=== PATIENT | male | born 1955 | race Caucasian/White ===

== ENCOUNTER 2018-02-15 14:52 | Observation (INO) | payer OTHER ==
--- NOTE | 2018-02-15 15:17 | Emergency Department Record ---
History of Present Illness - General Chief Complaint: Numbness Stated Complaint: LT HAND NUMBNESS,FACE NUMBNESS,KATIE,PASS OUT HOUR Time Seen by Provider: 02/15/18 15:06 Source: Patient, Family Mode of Arrival: Wheelchair Limitations: No limitations - History of Present Illness Initial Comments: 62 yo male presents rapid heart rate the last 1.5 hours. He states this occurs frequently. Today the onset was with work. He feels pounding and feels a little short of breath. He states this happens very frequently. It especially occurs with exertion or activity. The onset today occurred with exertion. No CAD. No formal prior diagnosis. Onset/Timin -: Hour(s) History of same: Yes Place: Outdoors Severity: Mild Improves With: None Worsens With: None Associated Symptoms: Syncope Treatments Prior to Arrival: None - Aurora Coma Scale Eye Response: (4) Open spontaneously Motor Response: (6) Obeys commands Verbal Response: (5) Oriented Aurora Total: 15 - Symptoms of Stroke Symptoms of stroke: Dizziness, Numbness - Related Data Home Medications: Home Medications Medication Instructions Recorded Confirmed Last Taken Levothyroxine Sodium 75 mcg PO DAILY 02/15/18 02/15/18 Unknown Lisinopril/Hydrochlorothiazide 1 each PO DAILY 02/15/18 02/15/18 Unknown [Lisinopril-Hctz 20-12.5 mg Tab] Pantoprazole Sodium [Protonix] 20 mg PO DAILY 02/15/18 02/15/18 Unknown Allergies/Adverse Reactions: Allergies Allergy/AdvReac Type Severity Reaction Status Date / Time No Known Drug Allergies Allergy Verified 02/15/18 15:06 Travel Screening - Travel/Exposure Within Last 30 Days Have you traveled within the last 30 days?: No Review of Systems Constitutional: Denies: Chills, Fever, Malaise, Weakness Eyes: Denies: Eye discharge, Eye pain, Photophobia, Vision change ENT: Denies: Congestion, Throat pain Respiratory: Denies: Cough, Dyspnea, Hemoptysis, Stridor, Wheezes Cardiovascular: Reports: Palpitations. Denies: Chest pain, Dyspnea on exertion , Edema, Syncope Endocrine: Denies: Fatigue, Polydipsia, Polyuria Gastrointestinal: Denies: Abdominal pain, Diarrhea, Nausea, Vomiting Genitourinary: Denies: Dysuria, Frequency, Hematuria Musculoskeletal: Denies: Arthralgia, Back pain, Myalgia Skin: Denies: Bruising, Change in color, Rash Neurological: Denies: Headache, Numbness, Weakness Psychiatric: Denies: Anxiety Hematological/Lymphatic: Denies: Easy bleeding, Easy bruising, Swollen glands Physical Exam - General General Appearance: Alert, Oriented x3, Cooperative, No acute distress, Other ( Appears comfortable) Limitations: No limitations - Head Head exam: Atraumatic, Normal inspection - Eye Eye exam: Normal appearance, PERRL. negative: Conjunctival injection, Scleral icterus - ENT ENT exam: Normal exam, Mucous membranes moist Ear exam: Normal external inspection Nasal Exam: Normal inspection Mouth exam: Normal external inspection Teeth exam: Normal inspection Throat exam: Normal inspection - Neck Neck exam: Normal inspection, Full ROM. negative: Tenderness - Respiratory Respiratory exam: Normal lung sounds bilaterally. negative: Respiratory distress - Cardiovascular Cardiovascular Exam: Normal rhythm, Normal heart sounds, Tachycardia. negative : Regular rate Peripheral Pulses: 2+: Radial (R), Radial (L) - GI/Abdominal GI/Abdominal exam: Soft. negative: Tenderness - Rectal Rectal exam: Deferred - exam: Deferred - Extremities Extremities exam: Normal inspection, Full ROM, Normal capillary refill. negative: Calf tenderness, Joint swelling, Pedal edema, Tenderness - Back Back exam: Reports: Normal inspection, Full ROM. Denies: Muscle spasm, Rash noted, Tenderness - Neurological Neurological exam: Alert, Normal gait, Oriented X3 - Psychiatric Psychiatric exam: Normal affect, Normal mood - Skin Skin exam: Dry, Intact, Normal color, Warm Course Vital Signs 02/15/18 15:02 Temperature 97.4 F L Pulse Rate 182 H Respiratory 21 Rate Blood Pressure 133/90 Pulse Ox 97 - Reevaluation(s) Reevaluation #1: EKG 1505 Rate 182, RBBB, regular monomorphic, ST changes consistent with RBBB. 02/15/18 15:17 02/15/18 15:21 The patient did a bear-down vagal maneuver and the SVT converted to sinus tach 110 down from 180. 02/15/18 15:25 The repeat EKG demonstrated a RBBB sinus tach at 114, [id number], axis L. at 1519 02/15/18 15:34 The patient went back into SVT Adenosine 6mg given with brief slowing only for less than 10 seconds Repeat 6mg given with HR decrease to sinus tach at 110 Lopressor given Patient tolerated this well. 02/15/18 16:04 The patient tolerated the Lopressor well HR 80 sinus 02/15/18 16:05 The labs were reviewed No acute changes on the CBC CMP with a CR of 1.6 otherwise no acute changes The Troponin is normal. 02/15/18 16:13 EKG 1610 EKG #3 NSR, rate is 84, intervals RBBB, axis normal, ST No acute changes. 02/15/18 17:41 The case was discussed with Dr Mrashall of cardiology. He recommends admission, monitor, ECHO and stress test tomorrow with cardiology consultation. He recommends Lopressor 25mg BID. Change Lisinopril/HCTZ to just Lisinopril 20mg and stopping the HCTZ. I discussed the case with Camille Salguero of the admission service. The D-dimer is .50. The suspicion for PE is low given his recurrent episodes by history. Given the risk of IVP contrast with a CR of 1.6 and GFR of 47 I recommend starting non invasive with dopplers of the legs, hydrating and rechecking the CR. This was discussed with Camille Salguero. HR is 93 currently. Medical Decision Making - Lab Data Result diagrams: 02/15/18 15:05 02/16/18 06:46 Critical Care Time Critical Care Time: Yes Total Critical Care Time: 35 (Includes chemical conversion of SVT, constant monitoring, rechecks, coordination of care with cardiology and the hospitalist) Disposition Disposition: Admit Clinical Impression: SVT (supraventricular tachycardia), Right bundle branch block (RBBB) Disposition: Still a Patient at [facility] Decision to Admit: Admit from ER Decision to Admit Date: 02/15/18 Decision to Admit Time: 17:11 Condition: (1) Good Time of Disposition: 17:00 Quality - Quality Measures Quality Measures: N/A - Blood Pressure Screening Does Patient Have Any of the Following: Active Dx of HTN Blood Pressure Classification: Hypertensive Reading Systolic Measurement: 133 Diastolic Measurement: 90 Screening for High Blood Pressure: Patient Exclusion, Hx of HTN [G9744]
[2018-02-15] MEDS ORDERED: METOPROLOL TART 5 MG/5 ML VIAL IV ONE (15:24)
[2018-02-15] MEDS ORDERED: ADENOSINE 6 MG/2 ML VIAL IVP ONE ×2 (15:24→15:38)
[2018-02-15 15:31] LABS: BASO % 0.6 % (0-6); EOS % 2.3 % (0-6); GRAN % 69.7 % (47-80); HEMATOCRIT 45.5 % (42.0-52.0); HEMOGLOBIN 15.6 gm/dl (14.0-18.0); MEAN CELL VOLUME 88.3 fl (81-97); MEAN CORPUSCULAR HEMOGLOBIN 30.3 pg (27-33); MEAN CORPUSCULAR HGB CONC 34.3 g/dl (32-36); MEAN PLATELET VOLUME 10.9 fl (7.4-10.4); MONO % 8.4 % (0-9); PLATELET COUNT 306 K/uL (130-400); RED BLOOD COUNT 5.15 M/uL (4.40-5.70); RED CELL DISTRIBUTION WIDTH 13.5 % (11.5-14.5); WHITE BLOOD COUNT W/O DIFF 8.1 K/uL (4.2-12.2)
[2018-02-15 15:37] LABS: BLOOD UREA NITROGEN 21 mg/dL (8-23); CREATININE 1.6 mg/dL (0.7-1.2); EST GLOMERULAR FILTRATION RATE 47 mL/min
[2018-02-15 15:38] LABS: TOTAL PROTEIN 8.2 g/dL (6.6-8.7)
[2018-02-15 15:40] LABS: GLUCOSE,RANDOM 109 mg/dL (74-109); PROTHROMBIN TIME (PATIENT) 10.6 SECONDS (9.5-12.1)
[2018-02-15 15:43] LABS: ALB/GLOB RATIO 1.4 (1.1-1.8); ALBUMIN 4.8 g/dL (4.0-5.0); ALKALINE PHOSPHATASE 44 U/L (40-129); ALT/SGPT 30 U/L (<41); AST/SGOT 31 U/L (10.0-50.0)
[2018-02-15 15:46] LABS: NTpro B-NATRIURETIC PEPTIDE 28.07 pg/mL (<125)
[2018-02-15] MEDS ORDERED: SODIUM CHLORIDE 0.9% 500 ML IV ONE (17:09)
--- NOTE | 2018-02-15 19:06 | History & Physical ---
History of Present Illness - Date of Service Date of Service for History & Physical: 02/15/18 - History of Present Illness Admitting Diagnosis: SVT, new onset RBBB History of Present Illness: 62 yo male presents for SVT (HR 180) with regular activity and new RBBB. PMH former smoker, asthma, HTN, hypothyroidism Pt reports that he was cutting wood and noticed he was getting more fatgiued than usual. Sat down for a few minutes, had the sensation of racing heart but continued to work. Pt then hooked up a trailer and was radha when he became dizzy. No history of similar, no family history of significant cardiac hx other than DM, HTN. hyperlipidemia in parents. ER Pt was found to have HR 180, dx SVT. Provider attempted vagal maneuvers, decreasing HR for approx 1 min. Adenosine was given with non sustained results. Pt was then given lopressor IVP and HR controlled after that. EKG obtained RBBB noted, new. Dr Marshall consulted and states will see pt tomorrow and complete ECHO and nuc stress test. NS 500cc bolus, adenosine 6mg IVP x2, lopressor 5mg IVP, lopressor 25mg PO WBC 8.1, RBC 5.15, Hgb 15.4, Hct 45, Plt 306 Na 144, K 3.8, CL 98, CO2 25, BUN 21, creatinine 1.6, glucose 109, BNP 28, mag 1.8, trop <0.010, D Dimer 0.50 02/15/18 Pt in no acute distress, HR 80's, denies CP, SOB, or dizziness. Lungs have mild wheezing but good air movement. Heart RRR, no murmurs noted. No edema noted. Pt updated on POC for repeat EKGs, labs, and cardiology with echo and nuc med stress test. Pt also educated on diet restrictions prior to testing. Specialist: Joanna (to see pt 02/16/18) Travel Screening - Travel/Exposure Within Last 30 Days Have you traveled within the last 30 days?: No Review of Systems Constitutional: Reports: As per HPI. Denies: Chills, Fever, Malaise, Night sweats, Weakness, Weight change Eyes: Reports: As per HPI. Denies: Eye discharge, Eye pain, Photophobia, Vision change ENT: Reports: As per HPI. Denies: Congestion, Dental pain, Ear pain, Epistaxis , Hearing loss, Throat pain Respiratory: Reports: As per HPI. Denies: Cough, Dyspnea, Hemoptysis, Stridor, Wheezes Cardiovascular: Reports: Dyspnea on exertion, Palpitations Endocrine: Reports: As per HPI. Denies: Fatigue, Heat or cold intolerance, Polydipsia, Polyuria Gastrointestinal: Reports: As per HPI. Denies: Abdominal pain, Constipation, Diarrhea, Hematemesis, Hematochezia, Melena, Nausea, Vomiting Genitourinary: Reports: As per HPI. Denies: Dysuria, Frequency, Hematuria, Incontinence, Retention, Testicular pain, Testicular mass, Urgency Musculoskeletal: Reports: As per HPI. Denies: Arthralgia, Back pain, Gout, Joint swelling, Myalgia, Neck pain Skin: Reports: As per HPI. Denies: Bruising, Change in color, Change in hair/ nails, Lesions, Pruritus, Rash Neurological: Reports: Other (dizziness) Psychiatric: Reports: As per HPI. Denies: Anxiety, Auditory hallucinations, Depression, Homicidal thoughts, Suicidal thoughts, Visual hallucinations Hematological/Lymphatic: Reports: As per HPI. Denies: Anemia, Blood Clots, Easy bleeding, Easy bruising, Swollen glands Past Medical History - SOCIAL HISTORY Smoking Status: Never smoker Alcohol Use: None Drug Use: None - RESPIRATORY Hx Respiratory Disorders: No Hx Asthma: Yes - CARDIOVASCULAR Hx Cardio Disorders: Yes Hx Hypertension: Yes Comment:: palpitations - NEURO Hx Neuro Disorders: No - GI Hx GI Disorders: Yes Hx Reflux: Yes - Hx Genitourinary Disorders: No - ENDOCRINE Hx Endocrine Disorders: Yes Hx Thyroid Disease: Yes - MUSCULOSKELETAL Hx Musculoskeletal Disorders: No - PSYCH Hx Psych Problems: No - HEMATOLOGY/ONCOLOGY Hx Hematology/Oncology Disorders: No Family Medical History Any Significant Family History?: No H&P Meds/Allergies - Allergies Allergies: Allergies Allergy/AdvReac Type Severity Reaction Status Date / Time No Known Drug Allergies Allergy Verified 02/15/18 15:06 - Home Medications Home Medications Medication Instructions Recorded Confirmed Last Taken Levothyroxine Sodium 75 mcg PO DAILY 02/15/18 02/15/18 Unknown Lisinopril/Hydrochlorothiazide 1 each PO DAILY 02/15/18 02/15/18 Unknown [Lisinopril-Hctz 20-12.5 mg Tab] Pantoprazole Sodium [Protonix] 20 mg PO DAILY 02/15/18 02/15/18 Unknown - Active Medications Active Medications: Current Medications Metoprolol Tartrate (Lopressor) 25 mg PO BID LEORA Physical Exam - Vital Signs Vital Signs: Vital Signs - Last 24 Hrs Temp Pulse Pulse Resp BP BP Pulse Ox 02/15/18 18:37 67 18 108/67 100 02/15/18 16:14 89 16 100/80 97 02/15/18 15:39 86 18 111/84 97 02/15/18 15:02 97.4 F L 182 H 21 133/90 97 - General Limitations: No limitations - Head Head exam: Atraumatic Head exam detail: negative: Abrasion, Contusion, General tenderness - Eye Eye exam: Normal appearance - ENT ENT exam: Normal exam Ear exam: Normal external inspection Mouth exam: Normal external inspection - Neck Neck exam: Normal inspection - Respiratory Respiratory exam: Normal lung sounds bilaterally, Wheezes (mild) - Cardiovascular Cardiovascular Exam: Regular rate, Normal rhythm, Normal heart sounds Peripheral Pulses: 2+: Radial (R), Radial (L), Dorsalis Pedis (R), Dorsalis Pedis (L) - Rectal Rectal exam: Deferred - exam: Deferred - Extremities Extremities exam: Normal inspection, Full ROM, Normal capillary refill. negative: Pedal edema - Neurological Neurological exam: Alert, Oriented X3 - Psychiatric Psychiatric exam: Normal affect - Skin Skin exam: Dry, Intact, Normal color, Warm. negative: Abrasion, Cyanosis Results - Labs Result Diagrams: 02/15/18 15:05 02/15/18 15:05 Labs Last 24 Hours: Laboratory Results - last 24 hr 02/15/18 02/15/18 02/15/18 15:05 15:05 15:05 WBC 8.1 RBC 5.15 Hgb 15.6 Hct 45.5 MCV 88.3 MCH 30.3 MCHC 34.3 RDW 13.5 Plt Count 306 MPV 10.9 H Gran % 69.7 Lymphocytes % 19.0 Monocytes % 8.4 Eosinophils % 2.3 Basophils % 0.6 PT 10.6 INR 1.0 APTT 28.0 D-Dimer Sodium 144 Potassium 3.8 Chloride 98 Carbon Dioxide 25.0 Anion Gap 21.0 H BUN 21 Creatinine 1.6 H Estimated GFR 47 Random Glucose 109 Calcium 10.1 Magnesium 1.8 Total Bilirubin 0.50 AST 31 ALT 30 Alkaline Phosphatase 44 Troponin T < 0.010 NT-Pro-B Natriuret Pep 28.07 Total Protein 8.2 Albumin 4.8 Globulin 3.4 Albumin/Globulin Ratio 1.4 02/15/18 02/15/18 15:20 15:30 WBC RBC Hgb Hct MCV MCH MCHC RDW Plt Count MPV Gran % Lymphocytes % Monocytes % Eosinophils % Basophils % PT INR APTT D-Dimer 0.50 Sodium Potassium Chloride Carbon Dioxide Anion Gap BUN Creatinine Estimated GFR Random Glucose Calcium Magnesium Total Bilirubin AST ALT Alkaline Phosphatase Troponin T NT-Pro-B Natriuret Pep Cancelled Total Protein Albumin Globulin Albumin/Globulin Ratio VTE H&P Assessment - Risk for VTE Risk for VTE: Yes Risk Level: Moderate Risk Assessment Date: 02/15/18 Risk Assessment Time: 19:43 VTE Orders Placed or Will Be Placed: Yes Plan - Inpatient Certification Inpatient Certification: Admit to inpatient care: Based on my medical assessment, after consideration of patient's risk factors (age, co-morbidities and patient presenting symptoms and acuity), I expect that this patient will remain in the hospital greater than or equal to two midnights and that the services needed warrant inpatient care because: Patient Risk Factors: SVT, new onset RBBB Estimated length of stay: The patient may reasonably be expected to be discharged or transferred to a hospital within 96 hours after admission to [facility]. Services needed: continuous cardiac monitoring, urgent echo/stress test, serial cardiac enzymes and EKGs Post hospital care (if known): [] I certify that my determination is in accordance with my understanding of Medicare requirements for reasonable and necessary inpatient services. 02/15/18 19:48 - Detailed Diagnosis and Plan (1) Right bundle branch block (RBBB) Current Visit: Yes Status: Acute Base Code: I45.10 - UNSPECIFIED RIGHT BUNDLE-BRANCH BLOCK Comment: 02/15/18 - new onset RBBB -SVT noted on admission to ER, resolved with lopressor IVP 5mg, followed by 25mg PO -Seeing Dr Marshall 02/16/18 for echo and stress (2) SVT (supraventricular tachycardia) Current Visit: Yes Status: Acute Base Code: I47.1 - SUPRAVENTRICULAR TACHYCARDIA Comment: 02/15/18 -SVT noted upon presentation to ER, HR 180 -vagal (failed) -adenosine (failed) -lopressor 5mg IVP converted to NSR, followed by lopressor 25g PO BID -Joanna consult with echo and stress 02/16/18 (3) DVT prophylaxis Current Visit: Yes Status: Acute Base Code: [id number] - Comment: 02/15/18 lovenox 60mg daily (4) Full code status Current Visit: Yes Status: Acute Base Code: Z78.9 - OTHER SPECIFIED HEALTH STATUS Comment: 02/15/18 full code status
[2018-02-15] MEDS ORDERED: ACETAMINOPHEN 325 MG TAB PO PRN (19:24)
[2018-02-15] MEDS ORDERED: ENOXAPARIN 60 MG/0.6 ML SYR SQ SCH (19:24)
[2018-02-15] MEDS ORDERED: 0.9 % SODIUM CHLORIDE 1000ML 1,000 ML IV PRN (19:24)
[2018-02-15] MEDS ORDERED: METOPROLOL TART 25 MG TABLET PO SCH (22:00)
[2018-02-15] MEDS: METOPROLOL TART 25 MG TABLET PO SCH (22:18)
--- NOTE | 2018-02-16 06:52 | RADIOLOGY REPORT ---
EXAM: PORTABLE CHEST HISTORY: RAPID HEART RATE. TECHNIQUE: A portable frontal view of the chest was obtained. Comparison: None. FINDINGS: Images were not submitted for my interpretation until 5:19 p.m. on . The heart size is normal. Mild ectasia of the thoracic aorta. Linear density projecting over the aortic knob is likely artifactual. The lungs are hyperinflated, but otherwise clear. No pneumothorax. IMPRESSION: UNDERLYING HYPERINFLATION. NO ACUTE CARDIOPULMONARY PROCESS. JOB NUMBER: [id number] [facility]
[2018-02-16] MEDS ORDERED: PANTOPRAZOLE SODIUM 40 MG TABLET PO SCH (07:00)
[2018-02-16] MEDS ORDERED: LEVOTHYROXINE SODIUM 75 MCG TABLET PO SCH (07:00)
[2018-02-16 07:25] LABS: BLOOD UREA NITROGEN 18 mg/dL (8-23); CREATININE 1.1 mg/dL (0.7-1.2); EST GLOMERULAR FILTRATION RATE > 60 mL/min; GLUCOSE,RANDOM 105 mg/dL (74-109)
[2018-02-16] MEDS: METOPROLOL TART 25 MG TABLET PO SCH ×2 (09:29→20:18)
[2018-02-16] MEDS ORDERED: ENOXAPARIN 40 MG/0.4 ML SYR SQ SCH (10:00)
[2018-02-16] MEDS ORDERED: LISINOPRIL 20 MG TABLET PO SCH (10:00)
[2018-02-16] MEDS ORDERED: ASPIRIN 325 MG TAB ENTERIC-COATED PO SCH (10:00)
[2018-02-16] MEDS ORDERED: HYDROCHLOROTHIAZIDE 12.5 MG CAPSULE PO SCH (10:00)
--- NOTE | 2018-02-16 19:44 | Discharge Summary ---
Providers Discharge Summary Date: 02/16/18 Date of admission: 02/15/18 19:09 Expected Date of Discharge: 02/16/18 Attending physician: VINCENT JAVIER Primary care physician: ERIBERTO KHAN M.D. Consults: Consult Orders 02/15/18 19:24 Consult - Cardiology NOW Consulting Provider: RADHA MARTINEZ Physician Instructions: Reason For Exam: SVT,RBBB Does pt have current director social?: Evy Physical Exam - Vital Signs Vital Signs: Vital Signs - Last 24 Hrs Temp Pulse Pulse Resp BP Pulse Ox 02/16/18 08:20 74 16 02/16/18 08:00 98.3 F 82 16 105/74 96 02/15/18 21:00 63 16 02/15/18 20:53 98.2 F 17 116/84 97 - General General Appearance: Alert, Oriented x3, Cooperative, No acute distress, Other ( Appears comfortable) Limitations: No limitations - Head Head exam: Atraumatic, Normal inspection Head exam detail: negative: Abrasion, Contusion, General tenderness - Eye Eye exam: Normal appearance, PERRL. negative: Conjunctival injection, Scleral icterus - ENT ENT exam: Normal exam, Mucous membranes moist Ear exam: Normal external inspection Nasal Exam: Normal inspection Mouth exam: Normal external inspection Teeth exam: Normal inspection Throat exam: Normal inspection - Neck Neck exam: Normal inspection, Full ROM. negative: Tenderness - Respiratory Respiratory exam: Normal lung sounds bilaterally. negative: Respiratory distress - Cardiovascular Cardiovascular Exam: Normal rhythm, Normal heart sounds, Tachycardia. negative : Regular rate Peripheral Pulses: 2+: Radial (R), Radial (L), Dorsalis Pedis (R), Dorsalis Pedis (L) - GI/Abdominal GI/Abdominal exam: Soft. negative: Tenderness - Rectal Rectal exam: Deferred - exam: Deferred - Extremities Extremities exam: Normal inspection, Full ROM, Normal capillary refill. negative: Calf tenderness, Joint swelling, Pedal edema, Tenderness - Back Back exam: Reports: Normal inspection, Full ROM. Denies: Muscle spasm, Rash noted, Tenderness - Neurological Neurological exam: Alert, Normal gait, Oriented X3 - Psychiatric Psychiatric exam: Normal affect, Normal mood - Skin Skin exam: Dry, Intact, Normal color, Warm Hospitalization - Hospitalization Admission Diagnosis: SVT, new onset RBBB - Problem List/Discharge Diagnosis (1) SVT (supraventricular tachycardia) Status: Acute Base Code: I47.1 - SUPRAVENTRICULAR TACHYCARDIA Comment: -SVT noted upon presentation to ER, HR 180 -vagal (failed) -adenosine (failed) -lopressor 5mg IVP converted to NSR, followed by lopressor 25g PO BID -Pt. started on 25mg metoprolol BID -Pt. to f/u with Dr. Higuera OP for stent placement (2) Right bundle branch block (RBBB) Status: Acute Base Code: I45.10 - UNSPECIFIED RIGHT BUNDLE-BRANCH BLOCK Comment: 02/16/18 - new onset RBBB -SVT noted on admission to ER, resolved with lopressor IVP 5mg, followed by 25mg PO -Cardiac consult on 02/[address] Higuera, echo normal, pt. scheduled to f/u OP for stent and pt. referred to nightman in cardiology office (3) DVT prophylaxis Status: Acute Base Code: [id number] - Comment: 02/16/18 lovenox decrease to 40mg daily for prophylaxis (4) Full code status Status: Acute Base Code: Z78.9 - OTHER SPECIFIED HEALTH STATUS Comment: 02/16 full code status - Disposition Discharge home, self-care - Hospitalization Course Disposition: Home, Self-Care Hospital Course: 62 yo male presents for SVT (HR 180) with regular activity and new RBBB. PMH former smoker, asthma, HTN, hypothyroidism Pt reports that he was cutting wood and noticed he was getting more fatgiued than usual. Sat down for a few minutes, had the sensation of racing heart but continued to work. Pt then hooked up a trailer and was radha when he became dizzy. No history of similar, no family history of significant cardiac hx other than DM, HTN. hyperlipidemia in parents. ER Pt was found to have HR 180, dx SVT. Provider attempted vagal maneuvers, decreasing HR for approx 1 min. Adenosine was given with non sustained results. Pt was then given lopressor IVP and HR controlled after that. EKG obtained RBBB noted, new. Dr Martinez consulted and states will see pt tomorrow and complete ECHO and nuc stress test. NS 500cc bolus, adenosine 6mg IVP x2, lopressor 5mg IVP, lopressor 25mg PO WBC 8.1, RBC 5.15, Hgb 15.4, Hct 45, Plt 306 Na 144, K 3.8, CL 98, CO2 25, BUN 21, creatinine 1.6, glucose 109, BNP 28, mag 1.8, trop <0.010, D Dimer 0.50 02/15/18 Pt in no acute distress, HR 80's, denies CP, SOB, or dizziness. Lungs have mild wheezing but good air movement. Heart RRR, no murmurs noted. No edema noted. Pt updated on POC for repeat EKGs, labs, and cardiology with echo and nuc med stress test. Pt also educated on diet restrictions prior to testing. 02/16/18 Pt. in no acute distress, HR 80's, denies CP, SOB, or dizziness. Heart RRR, no murmurs notes, no edema. Cardiology consult completed today with Dr. Higuera. Per Dr. Higuera, plan to f/u outpatient for stent and refer to nightman in his office for conversion of episodic SVT. Plan to discharge home this evening and continue metropolol 25mg BID. Specialist: Joanna Procedures: Imaging and X-Rays 02/15/18 15:18 CHEST 1 VIEW [RAD] Stat 02/16/18 VENOUS DOPPLER LOWER EXT CRUZ [US] Stat Cardiology Procedures 02/15/18 15:06 Casino Investigator NOW EKG NOW 02/15/18 16:04 EKG NOW 02/15/18 19:24 Casino Investigator .Continuous Cardiolite MPI w/exercise stre NOW EKG QDX2@0600 Echo W/CF & Cardiac Doppler NOW Abnormal Labs: Abnormal Lab Results 02/15/18 02/15/18 02/15/18 Range/Units 15:05 15:05 22:28 MPV 10.9 H (7.4-10.4) fl Anion Gap 21.0 H (7-16) Creatinine 1.6 H (0.7-1.2) mg/dL Troponin T 0.045 H (0-0.010) ng/mL 02/16/18 Range/Units 06:46 MPV (7.4-10.4) fl Anion Gap (7-16) Creatinine (0.7-1.2) mg/dL Troponin T 0.019 H (0-0.010) ng/mL Condition at Discharge: (1) Good VTE Discharge VTE Reason For No Overlap Therapy: Not Indicated (upcoming stent procedure) Discharge Medications - Discharge Medications Prescriptions: Metoprolol Tartrate [Lopressor] 25 mg PO BID 30 Days #60 tab Home Medications: Ambulatory Orders Levothyroxine Sodium 75 mcg PO DAILY 02/15/18 [Last Taken Unknown] Pantoprazole Sodium [Protonix] 20 mg PO DAILY 02/15/18 [Last Taken Unknown] Metoprolol Tartrate [Lopressor] 25 mg PO BID 30 Days #60 tab 02/16/18 [Last Taken Unknown] Discharge Plan - Discharge Instructions Activity at Discharge: Increase Activity as Tolerated Diet at Discharge: Advance to Usual Diet Instructions: Metoprolol (By mouth), Supraventricular Tachycardia (DC), Chest Pain (DC), Heart Catheterization (DC) Additional Instructions: 2 Activity: As tolerated 2 Diet: Regular 2 Consults: Dr Martinez is referring you to an nightman. His office will contact you with an appointment. 2 Follow Up: Dr Martinez's office will call you with an appointment for the heart catheterization. Do not continue your lisinopril/hctz until following up with Dr. Higuera (the metroprolol is lowering your blood pressure and you may become hypotensive if you take both medications 2 Additional: Please return to the closest emergency department with any new or worsening symptoms. Quality Measures - Quality Measures Quality Measures: Documentation of Current Medications in Medical Record, Screening for High Blood Pressure and F/U Documented - Current Medications Quality Measure: Measure #130: Documentation of Current Medications Documentation of Current Medications: <Current Medications Documented/Reviewed> [G8427] - Blood Pressure Screening Quality Measure: Screening for High Blood Pressure and Follow-Up Documented Does Patient Have Any of the Following: Active Dx of HTN Blood Pressure Classification: Hypertensive Reading Systolic Measurement: 133 Diastolic Measurement: 90 Screening for High Blood Pressure: Patient Exclusion, Hx of HTN [G9744] - Elder Abuse Suspicion Index EASI Reference Information: Mane NGUYEN, Don C, Arjun D, Butch Medina.Development and validation of a tool to assist physicians identification of elder abuse: The Elder Abuse Suspicion Index (EASI ). Journal of Elder Abuse and Neglect, 2008; 20 (3): 276-300.
--- NOTE | 2018-02-17 07:16 | US VENOUS DOPPLER REPORT ---
EXAM: BILATERAL LOWER EXTREMITY VENOUS DOPPLER ULTRASOUND HISTORY: CRAMPS. TECHNIQUE: Transverse and longitudinal sonographic images of the deep venous system of the bilateral lower extremities was performed. Comparison: None. FINDINGS: Doppler and spectral analysis with color flow was utilized. Normal waveforms bilaterally. No visible areas of thrombus formation. Normal compression and augmentation bilaterally. IMPRESSION: NEGATIVE EXAMINATION. JOB NUMBER: [id number] MTDD
--- NOTE | 2018-02-17 21:35 | Medical Records Consult ---
DATE OF CONSULTATION: 02/16/2018 REFERRING PHYSICIAN: DR. YUSEF GEORGES CONSULTING PHYSICIAN: RADHA MARTINEZ M.D. REASON FOR CONSULTATION: SVT AND ELEVATED CARDIAC BIOMARKERS. HISTORY OF PRESENT ILLNESS: Mr. Chris is a delightful 62-year-old gentleman who has a history of hypertension. He also has a longstanding history of palpitations that he can date back to 15 years ago. The patient says that he has had episodes on and off for a long time, however, he has never had a formal diagnosis. The patient says that he usually feels palpitations in the center of his chest and he can become very lightheaded and dizzy as well has shortness of breath and usually it goes away. However, yesterday he had this while he was driving and he pulled over his truck to the side and since the episode was not going away, he came to the Emergency Department. The patient says that he was dizzy and very uncomfortable. In the Emergency Department, he was found to have a wide complex tachycardia with a heart rate of 180 beats per minute. He was given Adenosine 6 mg, which did not convert him to sinus rhythm and then he was given some fluids as well as Lopressor and he finally converted back to sinus rhythm and since then he has been maintaining sinus rhythm. The patient did have mildly elevated troponin. He also had a CT of his chest performed to rule out PE, which was negative. He also had lower extremity venous Dopplers, which were negative as well. ALLERGIES: NO KNOWN DRUG ALLERGIES. HOME MEDICATIONS: Levothyroxine 75 mcg daily Lisinopril/Hydrochlorothiazide 20/4.5 mg p.o. daily Protonix 20 mg p.o. daily SOCIAL HISTORY: The patient denies any illicit drug use, however, he drinks a lot of coffee. He is an active gentleman and can do all of his activities without any issues. PHYSICAL EXAMINATION: On physical examination, Mr. Chris is a delightful 62-year-old gentleman, who is sitting comfortably in bed, not in any apparent distress. He is alert and oriented x3. HEENT: On HEENT examination, he is normocephalic/atraumatic. Extraocular muscles are intact. NECK: Neck is supple. CVS: On CVS examination, he has normal S1 and S2. There is no JVD. No pedal edema. RESPIRATORY: Respiratory examination reveals that his lungs are clear to auscultation bilaterally. ABDOMEN: Abdomen is soft and nontender. NEUROLOGIC: Neurologic examination is nonfocal. LABORATORY DATA: Shows a white count of 8.1. Hemoglobin of 15.6. Hematocrit of 45.5. Platelet count of 306. Sodium is 144. Potassium is 3.8. Chloride is 98. CO2 25. BUN 21. Creatinine this morning was 1.6. Blood glucose 109. His troponin went up from 0.010 to 0.045 and then came down to 0.019. N-terminal proBNP was 28. Magnesium was 1.8. His EKG shows sinus rhythm with a right bundle branch block. He had a stress test performed that shows a fixed defect in the inferior wall with normal LV function. IMPRESSION: 1. SUPRAVENTRICULAR TACHYCARDIA. 2. ELEVATED CARDIAC BIOMARKERS. 3. HISTORY OF HYPERTENSION. 4. HISTORY OF HYPOTHYROIDISM. 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 I had a long discussion with the patient about lifestyle changes and told him to keep himself well hydrated and also to decrease his caffeine intake because of his SVT going on for a long time and the episodes getting more intense. I would recommend him to be evaluated by our Electrophysiology colleague, Dr. Lucas, for possible SVT ablation. I discussed this with the patient, who agrees with the plan and I will refer him to see Dr. Lucas as an outpatient. The patient has an abnormal myocardial perfusion imaging showing a fixed defect in the inferior wall. Although the patient doesn't have any previous history of myocardial infarction and he has mildly elevated troponin, which most likely was demand ischemia rather than acute coronary syndrome and the inferior wall defect could be diaphragmatic attenuation artifact, however, given his risks factors as well as the arrhythmia and the elevated troponin, I would recommend doing coronary angiography for further evaluation. The patient, however, at this time is fairly stable and would like to go home and have the cardiac catheterization performed as an outpatient, to which I agree. I explained the procedure of cardiac catheterization, possible complications and outcomes and the patient sounds understanding and wants to proceed with the plan as an outpatient. I will have my office schedule him for a coronary angiography as an outpatient. I would recommend starting him on Metoprolol 25 mg b.i.d. His blood pressure is adequately controlled. I would also recommend checking his TSH for the adequacy of the thyroid supplementation. Further recommendations would follow coronary angiography. The patient otherwise is stable for discharge from cardiac standpoint. Thank you very much. JOB NUMBER: [id number] MTDD
--- NOTE | 2018-02-17 22:28 | Cardiolite Stress Test Report ---
DATE OF STRESS TEST: 02/16/2018 INTERPRETING PHYSICIAN: India Marshall M.D. REFERRING PHYSICIAN: Dr. Donald Dunn PRIMARY CARE PHYSICIAN: Dr. Ben Barrios INDICATION: SUPRAVENTRICULAR TACHYCARDIA AND ELEVATED CARDIAC ENZYMES. Mr. Chris underwent a treadmill stress Cardiolite test. His resting vital signs show a blood pressure of 113/90 mmHg and a heart rate of 75 beats per minute. His resting ECG showed a sinus rhythm with a right bundle branch block and no significant ST or T-wave changes were noted. The patient was exercised on a motorized treadmill using standard Mike protocol for a total of 10 minutes achieving 11 METS of workload. He achieved a maximum heart rate of 138 beats per minute, which was 87% of the maximum predicted heart rate for his age. The patient's ECG didn't show any ST or T- wave changes suggestive of ischemia. No arrhythmia was seen either. The patient didn't have any abnormal symptoms. The patient was injected with stress dose Cardiolite at peak exercise and he exercised for one more minute after the Cardiolite injection. MYOCARDIAL PERFUSION IMAGING: The patient had rest and post stress myocardial perfusion imaging performed utilizing technetium-99m Sestamibi. The patient was given a dose of 12.7 mCi for resting images and a 35.7 mCi dose for stress images. Images were obtained at rest and post stress in the short axis-view, in the vertical long-axis, as well as horizontal long-axis views and were compared side by side. EKG gated images were obtained for LV function and wall motion. The rest and post stress myocardial perfusion images reveal a medium-sized, moderate intensity fixed defect involving the inferior wall suggestive of a possible infarct in the RCA territory. However, on the gated images, there is no wall motion abnormality implying a diaphragmatic attenuation artifact. No reversible defect to suggest ischemia was seen. EKG gated images showed an end-systolic volume of 41 mL with an end-diastolic volume of 104 mL and an ejection fraction of 60%. No wall motion abnormality was seen. IMPRESSION: 1. NORMAL ECG RESPONSE TO EXERCISE STRESS WHILE ACHIEVING 11 METS OF WORKLOAD. 2. FIXED DEFECT INVOLVING THE INFERIOR WALL SUGGESTIVE OF A POSSIBLE INFARCT IN THE RCA TERRITORY, HOWEVER, A DIAPHRAGMATIC ATTENUATION ARTIFACT CANNOT BE EXCLUDED. 3. NORMAL LEFT VENTRICULAR SIZE AND FUNCTION WITH AN ESTIMATED EJECTION FRACTION OF 60%. JOB NUMBER: [id number] [facility]
== END 2018-02-16 20:20 | disposition home or self-care (01) ==
LOC: ER 14:52 → INTOOBSV 19:09 → MEDSURG 19:09
PROVIDERS: ADMIT Internal Medicine; ATTEND Internal Medicine
DX: I47.1 Supraventricular tachycardia (principal); I45.10 Unspecified right bundle-branch block; R06.00 Dyspnea, unspecified; R55 Syncope and collapse; I10 Essential (primary) hypertension; E03.9 Hypothyroidism, unspecified; J45.909 Unspecified asthma, uncomplicated
CPT/HCPCS: 99285 ×2; 96374; 96375; 83735; 85025; 85730; 85610; 80048; 80053; 84484 ×2; 85379; 83880; 71045; 93970; 93017; 93005 ×2; 93010; G0378 ×2; A9500; J0153; 78451; 78452; 99217; 99220; J1650

== ENCOUNTER 2018-08-14 00:16 | Emergency (ER) | payer OTHER ==
--- NOTE | 2018-08-14 00:29 | Emergency Department Record ---
History of Present Illness - General Chief Complaint: Abdominal Pain Stated Complaint: DIVERTICULITIS Time Seen by Provider: 08/14/18 00:18 Source: Patient, Family Mode of Arrival: Ambulatory - History of Present Illness Initial Comments: 63 yo male presents with left lower abdominal pain that started today. He reports a history of diverticulosis with an episode of diverticulitis in May. He had a colonoscopy this summer that demonstrated polyps and diverticulosis. No fever. No vomiting. No diarrhea. He has some constipation. No rash. No swelling. MD Complaint: Abdominal pain -: Days(s) (1) Location: LLQ Radiation: LLQ Migration to: LLQ Quality: Aching Consistency: Constant Improves With: Nothing Worsens With: Movement Context: Other Associated Symptoms: Anorexia, Constipation - Related Data Previous Rx's Medication Instructions Recorded Metoprolol Tartrate [Lopressor] 25 mg PO BID 30 Days #60 tab 02/16/18 Ciprofloxacin HCl [Cipro] 500 mg PO Q12HR #14 tablet 08/14/18 Metronidazole [Flagyl] 500 mg PO QID #28 tablet 08/14/18 Allergies Allergy/AdvReac Type Severity Reaction Status Date / Time No Known Drug Allergies Allergy Verified 02/15/18 15:06 Review of Systems Constitutional: Denies: Chills, Fever, Malaise, Weakness Eyes: Denies: Eye discharge ENT: Denies: Congestion, Throat pain Respiratory: Denies: Cough, Dyspnea Cardiovascular: Denies: Chest pain, Palpitations, Syncope Endocrine: Denies: Fatigue Gastrointestinal: Reports: Abdominal pain, Constipation. Denies: Diarrhea, Hematemesis, Hematochezia, Melena, Nausea, Vomiting Genitourinary: Denies: Dysuria, Frequency, Hematuria Musculoskeletal: Denies: Arthralgia, Back pain, Myalgia Skin: Denies: Bruising, Change in color, Rash Neurological: Denies: Confusion, Headache, Numbness, Weakness Psychiatric: Denies: Anxiety Hematological/Lymphatic: Denies: Blood Clots, Easy bleeding, Easy bruising Past Medical History - SOCIAL HISTORY Smoking Status: Never smoker Drug Use: None - RESPIRATORY Hx Respiratory Disorders: No Hx Asthma: Yes - CARDIOVASCULAR Hx Cardio Disorders: Yes Hx Hypertension: Yes Comment:: palpitations - NEURO Hx Neuro Disorders: No - GI Hx GI Disorders: Yes Hx Reflux: Yes - Hx Genitourinary Disorders: No - ENDOCRINE Hx Endocrine Disorders: Yes Hx Thyroid Disease: Yes - MUSCULOSKELETAL Hx Musculoskeletal Disorders: No - PSYCH Hx Psych Problems: No - HEMATOLOGY/ONCOLOGY Hx Hematology/Oncology Disorders: No Physical Exam - General General Appearance: Alert, Oriented x3, Cooperative, No acute distress Limitations: No limitations - Head Head exam: Atraumatic, Normal inspection - Eye Eye exam: Normal appearance. negative: Conjunctival injection, Scleral icterus - ENT ENT exam: Normal exam Ear exam: Normal external inspection Nasal Exam: Normal inspection Mouth exam: Normal external inspection - Neck Neck exam: Normal inspection - Respiratory Respiratory exam: Normal lung sounds bilaterally. negative: Respiratory distress - Cardiovascular Cardiovascular Exam: Regular rate, Normal rhythm, Normal heart sounds - GI/Abdominal GI/Abdominal exam: Soft, Tenderness (tender to palpation in the left. Otherwise the abdomen is very soft). negative: Distended, Guarding, Rebound, Rigid - Rectal Rectal exam: Deferred - exam: Deferred - Extremities Extremities exam: Normal inspection, Full ROM, Normal capillary refill. negative: Tenderness - Back Back exam: Denies: CVA tenderness (R), CVA tenderness (L) - Neurological Neurological exam: Alert, Oriented X3 - Psychiatric Psychiatric exam: Normal affect, Normal mood - Skin Skin exam: Dry, Intact, Normal color, Warm Course - Reevaluation(s) Reevaluation #1: 08/14/18 01:05 No acute changes on the CBC 08/14/18 01:06 The UA is negative 08/14/18 01:11 BMP was reviewed. No acute changes. Normal GFR. 08/14/18 01:[address] reviewed. 1. mild acute sigmoid diverticulitis 2. sub 6mm lung nodule. patient advised by me to follow up with PCP 3. mild L1 compression deformity 4. mild aortoiliac disease 08/14/18 02:07 The patient is aware of the CT findings and the need to review with his PCP. We discussed home care, diet, reasons to return and the importance of the follow up with the PCP Medical Decision Making - Lab Data Result diagrams: 08/14/18 00:20 08/14/18 00:20 Disposition Disposition: Discharge Clinical Impression: Diverticulitis Disposition: Home, Self-Care Condition: (1) Good Instructions: Diverticulitis (ED) Additional Instructions: Call your doctor for follow up of the findings on CT. You have mild diverticulitis. Additionally you have small nodules in the lung that your doctor will recheck in the next [address] scan if indicated. Return to the ER if you have uncontrolled pain, fever or vomiting. Call your doctor to be seen this week for a recheck. Immediately return if you have uncontrolled pain, fever, vomiting or any new concerns. Prescriptions: Ciprofloxacin HCl [Cipro] 500 mg PO Q12HR #14 tablet Metronidazole [Flagyl] 500 mg PO QID #28 tablet Forms: Patient Portal Access Time of Disposition: 02:06 Quality - Quality Measures Quality Measures: N/A - Blood Pressure Screening Does Patient Have Any of the Following: Active Dx of HTN Blood Pressure Classification: Hypertensive Reading Systolic Measurement: 144 Diastolic Measurement: 91 Screening for High Blood Pressure: Patient Exclusion, Hx of HTN [G9744]
[2018-08-14] MEDS: 0.9 % SODIUM CHLORIDE 1,000 ML BAG IV ONE (00:35)
[2018-08-14] MEDS: MORPHINE SULFATE 10 MG/ML VIAL IVP ONE (00:35)
[2018-08-14 00:56] LABS: BASO % 0.6 % (0-6); EOS % 4.1 % (0-6); GRAN % 63.7 % (47-80); HEMATOCRIT 44.2 % (42.0-52.0); HEMOGLOBIN 14.7 gm/dl (14.0-18.0); LYMPH % 21.7 % (16-45); MEAN CELL VOLUME 88.8 fl (81-97); MEAN CORPUSCULAR HEMOGLOBIN 29.5 pg (27-33); MEAN CORPUSCULAR HGB CONC 33.3 g/dl (32-36); MEAN PLATELET VOLUME 10.7 fl (7.4-10.4); MONO % 9.9 % (0-9); PLATELET COUNT 290 K/uL (130-400); RED BLOOD COUNT 4.98 M/uL (4.40-5.70); RED CELL DISTRIBUTION WIDTH 14.1 % (11.5-14.5); WHITE BLOOD COUNT W/O DIFF 6.8 K/uL (4.2-12.2)
[2018-08-14 01:03] LABS: URINE APPEARANCE CLEAR; URINE BILIRUBIN NEGATIVE (NEGATIVE); URINE BLOOD NEGATIVE (NEGATIVE); URINE COLOR YELLOW; URINE GLUCOSE (UA) NEGATIVE (NEGATIVE); URINE KETONE NEGATIVE (NEGATIVE); URINE LEUKOCYTE ESTERASE NEGATIVE (NEGATIVE); URINE NITRITE NEGATIVE (NEGATIVE); URINE PROTEIN NEGATIVE (NEGATIVE); URINE UROBILINOGEN 0.2 E.U./dL (0.20 - 1.00)
[2018-08-14 01:05] LABS: BLOOD UREA NITROGEN 19 mg/dL (8-23); CREATININE 1.2 mg/dL (0.7-1.2); EST GLOMERULAR FILTRATION RATE > 60 mL/min
[2018-08-14 01:08] LABS: GLUCOSE,RANDOM 118 mg/dL (74-109)
[2018-08-14] MEDS: CIPROFLOXACIN HCL 500 MG TABLET PO ONE (02:13)
[2018-08-14] MEDS: METRONIDAZOLE 250 MG TABLET PO ONE ×2 (02:13→02:14)
[2018-08-14] MEDS: HYDROCODONE/APAP 5/325MG TABLET PO ONE (02:14)
--- NOTE | 2018-08-16 08:21 | CT SCAN REPORT ---
EXAM: CT OF THE ABDOMEN AND PELVIS WITH CONTRAST HISTORY: LEFT LOWER QUADRANT PAIN FOR FIVE TO SIX HOURS. TECHNIQUE: Standard CT imaging of the abdomen and pelvis was obtained after the intravenous administration of contrast. The type and dose of contrast is recorded in the electronic medical record. Delayed images are obtained through the kidneys. Coronal and sagittal reformations are provided. Comparison: None. FINDINGS: The lung bases are clear. The liver is unremarkable. No calcified gallstones or pericholecystic edema. The pancreas, spleen, and adrenal glands appear normal. There is a 2.5 cm cyst in the right kidney. The kidneys otherwise appear normal. The stomach and small bowel are unremarkable without abnormal dilatation. There is extensive colonic diverticulosis. There is a focally inflamed diverticulum in the sigmoid colon of the left lower quadrant consistent with acute diverticulitis. No discreet fluid collection or free air. The appendix is normal. The bladder is unremarkable. No retroperitoneal or mesenteric adenopathy. No free fluid or free air is identified. No destructive osseous lesion. There is mild anterior wedging of the L1 vertebral body which appears chronic. There is no acute lumbar spine fracture. There are a few 3 mm nodules at the right lung base. IMPRESSION: 1. MILD ACUTE UNCOMPLICATED SIGMOID DIVERTICULITIS. 2. A FEW TINY 3 MM NODULES AT THE RIGHT LUNG BASE. IN A LOW RISK PATIENT, NO FURTHER FOLLOW-UP IS NECESSARY. IF THE PATIENT IS HIGH RISK, SUCH WITH A HISTORY OF SMOKING, FOLLOW-UP CHEST CT IS OPTIONAL IN TWELVE MONTHS. JOB NUMBER: [id number] MTDD
== END 2018-08-14 02:19 | disposition home or self-care (01) ==
LOC: ER 00:16
DX: K57.32 Diverticulitis of large intestine without perforation or abscess without bleeding (principal); R91.8 Other nonspecific abnormal finding of lung field; I10 Essential (primary) hypertension
CPT/HCPCS: 99284 ×2; 96374; 96361; 85025; 80048; 81003; 74177; Q9967; J2270; J7030